=== PATIENT | female | born 1985 | race Caucasian/White ===

== ENCOUNTER 2017-06-15 15:27 | Observation (INO) | payer OTHER ==
[~2017-06-15] VITALS: Ht 170.2 cm; Wt 107.0 kg
[2017-06-15] MEDS ORDERED: PNV1TABL76 PO (15:44)
[2017-06-15] MEDS ORDERED: LACTATED RINGERS 1,000 ML IV SCH (17:45)
== END 2017-06-15 21:30 | disposition home or self-care (01) ==
LOC: L&D 15:27
PROVIDERS: ADMIT Specialist; ATTEND Specialist
DX: O24.419 Gestational diabetes mellitus in pregnancy, unspecified control (principal); Z3A.35 35 weeks gestation of pregnancy
CPT/HCPCS: 76815; 76818; 96360; 96361; G0378; J7120; 99281

== ENCOUNTER 2017-07-05 19:39 | Inpatient (IN) | payer MEDICAID, OTHER ==
[~2017-07-05] VITALS: Ht 170.2 cm; Wt 105.7 kg
[~2017-07-05 19:39] MED LIST: PNV1TABL76 PO
[2017-07-05] MEDS ORDERED: DEXT 5%/LACTATED RINGERS 1,000 ML IV SCH (20:07)
[2017-07-05] MEDS ORDERED: DEXT 5%/LR + PITOCIN 20UNITS/L 1,000 ML IV SCH (20:07)
[2017-07-05] MEDS ORDERED: CARBOPROST TROMETHAMINE 250 MCG/ML AMPUL IM PRN (20:15)
[2017-07-05] MEDS ORDERED: MISOPROSTOL 100MCG TABLET VG PRN (20:15)
[2017-07-05] MEDS ORDERED: NALOXONE HCL 0.4 MG/ML 1ML VIAL IM PRN (20:15)
[2017-07-05] MEDS ORDERED: METHYLERGONOVINE MALEATE 0.2 MG/ML IM PRN (20:15)
[2017-07-05] MEDS ORDERED: LIDOCAINE HCL 1% 20ML VIAL (Pyxis) INJ INFIL NR (20:15)
[2017-07-05] MEDS ORDERED: DINOPROSTONE 10MG VAGINAL INSERT VG NR (20:30)
[2017-07-05 20:47] LABS: BASOPHILS % 0.3 % (0.0-2.0); EOSINOPHILS % 1.5 % (0.0-5.0); HEMATOCRIT. 36.3 % (36.0-48.0); HEMOGLOBIN. 12.3 g/dL (12.0-16.0); LYMPHOCYTES % 20.6 % (20.0-50.0); MEAN CORPUSCULAR HEMOGLOBIN 29.8 pg (28.0-32.0); MEAN PLATELET VOLUME 10.3 fl (7.4-10.4); MONOCYTES % 6.2 % (2.0-8.0); NEUTROPHILS % 71.4 % (40.0-76.0); PLATELET 166 x1000/uL (130-400); RED BLOOD CELL COUNT 4.13 mill/uL (4.2-5.4); RED CELL DISTRIBUTION WIDTH 17.9 % (11.6-14.6)
[2017-07-05 20:48] LABS: CLARITY URINE CLEAR (CLEAR); COLOR URINE YELLOW (YELLOW); KETONES URINE 2+ (NEGATIVE); LEUKOCYTE ESTERASE URINE 1+ (NEGATIVE); NITRITE URINE NEGATIVE (NEGATIVE); OCCULT BLOOD URINE NEGATIVE (NEGATIVE); PH URINE 5.5 (4.5-8.0); PROTEIN URINE NEGATIVE (NEGATIVE); SPECIFIC GRAVITY URINE 1.024 (1.005-1.030)
[2017-07-05 20:54] LABS: CARBON DIOXIDE 22 mEq/L (21-32); CHLORIDE 105 mEq/L (98-107)
[2017-07-05 20:54] LABS: *AMPHETAMINES SCREEN URINE NEGATIVE (NEGATIVE); *BARBITURATES SCREEN URINE NEGATIVE (NEGATIVE); *BENZODIAZEPINES SCREEN URINE NEGATIVE (NEGATIVE); *COCAINE SCREEN URINE NEGATIVE (NEGATIVE); CANNABINOID URINE SCREEN NEGATIVE (NEGATIVE); METHADONE URINE SCREEN NEGATIVE (NEGATIVE); OPIATES URINE SCREEN NEGATIVE (NEGATIVE); PHENCYCLIDINE URINE SCREEN NEGATIVE (NEGATIVE)
[2017-07-05 20:56] LABS: PARTIAL THROMBOPLASTIN TIME 28.8 sec (23.4-31.0); PROTHROMBIN TIME 10.2 sec (9.4-11.6)
[2017-07-05] MEDS: LACTATED RINGERS 1,000 ML IV SCH (21:01)
[2017-07-05 21:19] LABS: HEPATITIS B SURFACE ANTIGEN NEGATIVE; RUBELLA IGG 150.2 IU/mL (4.99-10)
[2017-07-06] MEDS: LACTATED RINGERS 1,000 ML IV SCH ×4 (03:19→18:11)
[2017-07-06] MEDS ORDERED: URSO250T11 PO (06:41)
[2017-07-06] MEDS ORDERED: INFLUENZA VIRUS VACCINE 0.5ML SYR IM ONE (12:00)
[2017-07-06] MEDS ORDERED: BUTORPHANOL TARTRATE 2 MG/ML VIAL IV PRN (12:30)
[2017-07-06] MEDS ORDERED: FENTANYL CITRATE/PF 50MCG/ML 5ML VIAL ONE (13:02)
[2017-07-06] MEDS ORDERED: BUPIVACAINE HCL/PF 0.25% (2.5MG/ML) 10ML ONE (13:02)
[2017-07-06] MEDS ORDERED: BUPIVACAINE HCL/NS/PF EPIDURAL 100 ML EP ONE (13:02)
[2017-07-06] MEDS ORDERED: BUPIVACAINE HCL/NS/PF EPIDURAL 100 ML EP SCH (13:45)
[2017-07-06] MEDS: OXYTOCIN 20 UNITS in LACTATED RINGERS 1,000 ML IV SCH ×2 (16:06→20:38)
[2017-07-06] MEDS ORDERED: TERBUTALINE SULFATE 1MG/ML VIAL SUBCUT SCH (17:50)
[2017-07-06] MEDS ORDERED: ONDANSETRON HCL 4MG/2ML VIAL IV SCH (20:30)
[2017-07-06 22:05] VITALS: BP 118/77
[2017-07-06] MEDS ORDERED: DEXT 5%/LR + PITOCIN 20UNITS/L 1,000 ML IV SCH (22:43)
[2017-07-06] MEDS ORDERED: IBUPROFEN 400MG TABLET PO PRN (22:45)
[2017-07-06] MEDS ORDERED: RHO(D) IMMUNE GLOBULIN 300 MCG/SYR IM PRN (22:45)
[2017-07-06] MEDS ORDERED: METHYLERGONOVINE MALEATE 0.2 MG/ML IM PRN (22:45)
[2017-07-06] MEDS ORDERED: DIPHENHYDRAMINE 25MG CAPSULE PO PRN (22:45)
[2017-07-06] MEDS ORDERED: IBUPROFEN 800MG TABLET PO PRN (22:45)
[2017-07-06] MEDS ORDERED: HEMORRHOIDAL SUPP PR PRN (22:45)
[2017-07-06] MEDS ORDERED: LANOLIN OINT 0.25 GM TUBE TOP PRN (22:45)
[2017-07-06 23:00] VITALS: BP 118/80
[2017-07-07] VITALS: BP 115/78
[2017-07-07 04:00] VITALS: BP 99/55
[2017-07-07 06:08] LABS: BASOPHILS % 0.3 % (0.0-2.0); EOSINOPHILS % 0.5 % (0.0-5.0); HEMOGLOBIN. 8.3 g/dL (12.0-16.0); LYMPHOCYTES % 10.4 % (20.0-50.0); MEAN CORPUSCULAR VOLUME 87.5 fL (81.0-99.0); MEAN PLATELET VOLUME 10.2 fl (7.4-10.4); MONOCYTES % 6.6 % (2.0-8.0); NEUTROPHILS % 82.2 % (40.0-76.0); PLATELET 151 x1000/uL (130-400); RED BLOOD CELL COUNT 2.85 mill/uL (4.2-5.4); RED CELL DISTRIBUTION WIDTH 17.7 % (11.6-14.6)
[2017-07-07 08:00] VITALS: BP 103/44
[2017-07-07] MEDS: PRENATAL VIT/FE FUMARATE/FA TABLET PO SCH (09:07)
[2017-07-07 16:11] VITALS: BP 94/56
[2017-07-07 20:00] VITALS: BP 105/65
[2017-07-07] MEDS ORDERED: DOCUSATE SODIUM 100MG CAPSULE PO SCH (21:00)
[2017-07-07] MEDS: GUAIFENESIN-DM 200MG-20MG/10ML UDC PO PRN (21:13)
[2017-07-08] VITALS: BP 103/63
[2017-07-08 04:55] VITALS: BP 100/61
[2017-07-08 07:34] VITALS: BP 96/50
[2017-07-08] MEDS: GUAIFENESIN-DM 200MG-20MG/10ML UDC PO PRN (08:19)
[2017-07-08] MEDS: PRENATAL VIT/FE FUMARATE/FA TABLET PO SCH (08:19)
== END 2017-07-08 12:20 | disposition home or self-care (01) | DRG 560 ==
LOC: L&D 19:39 → OBSVTOIN 21:55 → 7EST PP/OB 07-06 22:16
PROVIDERS: ADMIT Obstetrics & Gynecology; ATTEND Obstetrics & Gynecology
PROC: 0W8NXZZ Division of Female Perineum, External Approach (ICD-10-PCS; 2017-07-06)
PROC: 3E0R3BZ Introduction of Anesthetic Agent into Spinal Canal, Percutaneous Approach (ICD-10-PCS; 2017-07-06)
PROC: 00HU33Z Insertion of Infusion Device into Spinal Canal, Percutaneous Approach (ICD-10-PCS; 2017-07-06)
PROC: 10E0XZZ Delivery of Products of Conception, External Approach (ICD-10-PCS; principal; 2017-07-06 19:08)
DX: O69.81X0 Labor and delivery complicated by cord around neck, without compression, not applicable or unspecified (principal); K83.1 Obstruction of bile duct; O26.62 Liver and biliary tract disorders in childbirth; O24.429 Gestational diabetes mellitus in childbirth, unspecified control; Z3A.38 38 weeks gestation of pregnancy; Z37.0 Single live birth; Z79.899 Other long term (current) drug therapy
CPT/HCPCS: 36415; 80053; 80305; 81001; 82962; 84550; 85025; 85384; 85610; 85730; 86592; 86703; 86762; 86850; 86900; 87340; 88307; G0378; J2405; J2590; J3010; J3490; J7120; A4315